=== PATIENT | male | born 1965 | race Caucasian/White ===

== ENCOUNTER → 2020-05-21 | Outpatient (CLI) | payer OTHER | END | disposition home or self-care (01) | LOC: CFH 12:10 | PROVIDERS: ATTEND Registered Nurse | DX: R07.9 Chest pain, unspecified (principal); I10 Essential (primary) hypertension; I22.9 Subsequent ST elevation (STEMI) myocardial infarction of unspecified site | CPT/HCPCS: 78452; 93017; A9502 ==